=== PATIENT | female | born 1980 | race African-American/Black ===

== ENCOUNTER 2020-11-21 13:54 | Emergency (ER) | payer SELFPAY ==
[~2020-11-21] VITALS: Ht 175.3 cm; Wt 90.7 kg
== END 2020-11-21 15:00 | disposition home or self-care (01) ==
LOC: FSED 14:26
DX: S61.210A Laceration without foreign body of right index finger without damage to nail, initial encounter (principal); W26.8XXA Contact with other sharp object(s), not elsewhere classified, initial encounter; Y92.008 Other place in unspecified non-institutional (private) residence as the place of occurrence of the external cause
CPT/HCPCS: 99283

== ENCOUNTER 2021-05-10 17:58 | Emergency (ER) | payer OTHER ==
[~2021-05-10] VITALS: Ht 175.3 cm; Wt 90.7 kg
[2021-05-10] MEDS ORDERED: HYDROCODONE/APAP 10MG-325MG TAB PO ONE (18:15)
[2021-05-10] MEDS ORDERED: NEURONTIN100 MG PO (18:17)
[2021-05-10] MEDS ORDERED: PREDNISONE20 MG PO (18:17)
[2021-05-10] MEDS ORDERED: VALTREX1000 MG PO (18:17)
[2021-05-10] MEDS ORDERED: HYDROCODONE/APAP 5MG-325MG TAB ONE (18:27)
[2021-05-10] MEDS ORDERED: HYDROCODONE/APAP 5MG-325MG TAB PO ONE (18:45)
== END 2021-05-10 18:45 | disposition home or self-care (01) ==
LOC: FSED 18:15
DX: B02.9 Zoster without complications (principal); I10 Essential (primary) hypertension; F17.210 Nicotine dependence, cigarettes, uncomplicated
CPT/HCPCS: 99282

== ENCOUNTER 2021-07-25 12:39 | Emergency (ER) | payer BC, OTHER ==
[~2021-07-25] VITALS: Ht 175.3 cm; Wt 92.8 kg
[~2021-07-25 12:39] MED LIST: NEURONTIN100 MG PO; PREDNISONE20 MG PO; VALTREX1000 MG PO
[2021-07-25] MEDS ORDERED: DEXAMETHASONE SOD PHOS 10 MG/1 ML VIAL IM ONE (13:00)
[2021-07-25] MEDS ORDERED: HYDROCODONE/APAP 5MG-325MG TAB PO ONE (13:00)
[2021-07-25] MEDS ORDERED: CIPRODEX OTIC7.5 ML LEFT EAR (13:26)
[2021-07-25] MEDS ORDERED: NAPROSYN500 MG PO (13:26)
[2021-07-25] MEDS ORDERED: DEXAMETHASONE SOD PHOS INJ 4 MG/ML SDV ONE (13:38)
[2021-07-25] MEDS ORDERED: HYDROCODONE/APAP 5MG-325MG TAB ONE (13:38)
== END 2021-07-25 13:54 | disposition home or self-care (01) ==
LOC: FSED 12:58
DX: H60.92 Unspecified otitis externa, left ear (principal); M25.561 Pain in right knee; I10 Essential (primary) hypertension; F17.210 Nicotine dependence, cigarettes, uncomplicated
CPT/HCPCS: 96372; 99283; J1100

== ENCOUNTER 2021-08-12 12:02 | Emergency (ER) | payer BC ==
[~2021-08-12] VITALS: Ht 175.3 cm; Wt 94.5 kg
[~2021-08-12 12:02] MED LIST changes: +CIPRODEX OTIC7.5 ML LEFT EAR; +NAPROSYN500 MG PO
[2021-08-12] MEDS ORDERED: DOXYCYCLINE HY100 MG PO (13:38)
== END 2021-08-12 14:06 | disposition home or self-care (01) ==
LOC: FSED 12:33
DX: L02.412 Cutaneous abscess of left axilla (principal); I10 Essential (primary) hypertension; F17.210 Nicotine dependence, cigarettes, uncomplicated
CPT/HCPCS: 10060; 99283

== ENCOUNTER 2022-04-05 20:59 | Emergency (ER) | payer BC ==
[~2022-04-05] VITALS: Ht 175.3 cm; Wt 102.5 kg
[~2022-04-05 20:59] MED LIST changes: +DOXYCYCLINE HY100 MG PO
[2022-04-05] MEDS ORDERED: CLINDAMYCIN HC150 MG PO (21:40)
[2022-04-05 21:45] VITALS: BP 152/97
== END 2022-04-05 21:45 | disposition home or self-care (01) ==
LOC: FSED 21:28
DX: L02.411 Cutaneous abscess of right axilla (principal); R39.198 Other difficulties with micturition; I10 Essential (primary) hypertension
CPT/HCPCS: 81003; 81025; 99282

== ENCOUNTER 2022-07-07 00:48 | Emergency (ER) | payer BC ==
[~2022-07-07] VITALS: Ht 175.3 cm; Wt 103.9 kg
[~2022-07-07 00:48] MED LIST changes: +CLINDAMYCIN HC150 MG PO
[2022-07-07] MEDS ORDERED: HYDROCODONE/APAP 5MG-325MG TAB PO ONE (02:00)
[2022-07-07] MEDS ORDERED: LIDOCAINE 1% 10 ML MULTIDOSE VIAL IJ ONE ×2 (02:15→02:28)
[2022-07-07] MEDS ORDERED: DOXYCYCLINE HY100 MG PO (02:57)
[2022-07-07] MEDS ORDERED: AMLODIPINE BESYL5 MG PO (02:58)
[2022-07-07] MEDS ORDERED: ACETAMINOPHEN-1 EAC4 PO (03:00)
[2022-07-07 03:10] VITALS: BP 155/106
== END 2022-07-07 03:10 | disposition home or self-care (01) ==
LOC: FSED 00:56
DX: L02.411 Cutaneous abscess of right axilla (principal); I10 Essential (primary) hypertension; Z88.1 Allergy status to other antibiotic agents; Z88.0 Allergy status to penicillin; Z88.2 Allergy status to sulfonamides; Z79.899 Other long term (current) drug therapy
CPT/HCPCS: 10061; 99283